=== PATIENT | female | born 1950 | race Caucasian/White ===

== ENCOUNTER 2019-04-21 09:19 | Day surgery (SDC) | payer MEDICARE, OTHER ==
[2019-04-21] MEDS ORDERED: LACTATED RINGERS 1,000 ML IV ONE (09:59)
[2019-04-21] MEDS ORDERED: MIDAZOLAM 2 MG/2 ML VIAL IVP ONE (11:19)
[2019-04-21] MEDS ORDERED: fentaNYL 250 MCG/5 ML VIAL IVP ONE (11:19)
[2019-04-21 12:45] VITALS: BP 134/76
== END 2019-04-21 09:20 | disposition home or self-care (01) ==
LOC: SDS 09:19
PROVIDERS: ATTEND Surgery
PROC: 0DJD8ZZ Inspection of Lower Intestinal Tract, Via Natural or Artificial Opening Endoscopic (ICD-10-PCS; principal; 2019-04-21 11:15)
DX: Z12.11 Encounter for screening for malignant neoplasm of colon (principal); Z86.010 Personal history of colon polyps; K64.8 Other hemorrhoids; I10 Essential (primary) hypertension; Z79.899 Other long term (current) drug therapy; Z85.828 Personal history of other malignant neoplasm of skin; Z80.0 Family history of malignant neoplasm of digestive organs
CPT/HCPCS: G0105; J3010; J7120